=== PATIENT | female | born 1955 | race Caucasian/White ===

== ENCOUNTER 2020-01-01 07:12 | Outpatient (CLI) | payer MEDICARE, OTHER, SELFPAY ==
[2020-01-01 07:33] LABS: Hematocrit 41.7 % (37.0-47.0); Hemoglobin 14.6 g/dL (12.0-15.0); Mean Corpuscular Hemoglobin 35.1 pg (26-34); Mean Corpuscular Volume 100.2 fl (80-100); Mean Platelet Volume 10.5 fl (7.4-10.4); Platelet Count Result 179 k/mm3 (150-375); Red Blood Count 4.16 M/mm3 (4.2-5.4); Red Cell Distribution Width 11.9 % (11.5-14.5); White Blood Count 5.3 K/mm3 (4.5-10.0)
[2020-01-01 07:45] LABS: Alanine Aminotransferase 24 U/L (4-35); Albumin Level 4.3 g/dL (3.5-5.1); Alkaline Phosphatase 83 U/L (38-126); Aspartate Amino Transferase 30 U/L (14-36); Bilirubin,Total 1.1 mg/dL (0.2-1.3); Blood Urea Nitrogen 7 mg/dL (7-17); Carbon Dioxide 26 mmol/L (22-30); Chloride 102 mmol/L (98-107); Cholesterol 144 mg/dL (0-200); Estimated Glomerular Filt Rate > 60; Glucose 181 mg/dL (65-105); HDL Direct 50 mg/dL; Potassium 4.1 mmol/L (3.4-5.0); Sodium 137 mmol/L (137-145); Triglycerides 236 mg/dL (<150)
[2020-01-01 07:56] LABS: LDL Cholesterol Direct 66 mg/dL
== END 2020-01-01 07:13 | disposition home or self-care (01) ==
PROVIDERS: PCP Family Medicine; Visit Provider Nurse Practitioner Family
DX: E78.5 Hyperlipidemia, unspecified (principal); I10 Essential (primary) hypertension; R53.83 Other fatigue; Z13.29 Encounter for screening for other suspected endocrine disorder; Z79.899 Other long term (current) drug therapy
CPT/HCPCS: 36415; 80053; 80061; 84443; 85027

== ENCOUNTER 2020-01-22 07:18 | Outpatient (CLI) | payer MEDICARE, OTHER, SELFPAY ==
[2020-01-22 07:59] LABS: Hemoglobin A1C 6.6 % (<5.7)
== END 2020-01-22 07:19 | disposition home or self-care (01) ==
PROVIDERS: PCP Family Medicine; Visit Provider Nurse Practitioner Family
DX: R73.01 Impaired fasting glucose (principal)
CPT/HCPCS: 36415; 83036

== ENCOUNTER → 2020-03-31 11:17 | Outpatient (CLI) | payer MEDICARE, OTHER, SELFPAY ==
--- NOTE | ~2020-03-31 | MM_ITS ---
EXAMINATION: MM screening [facility] BI w tomás HISTORY: Screening mammogram TECHNIQUE: Craniocaudal and mediolateral oblique 3-D tomosynthesis images were obtained and synthetic 2-D images were generated. CAD analysis was submitted and interpreted. COMPARISON: 12/19/2018, 11/10/2017, 11/06/2016 bilateral digital screening mammogram examinations BREAST PARENCHYMAL COMPOSITION: There are scattered areas of fibroglandular density. FINDINGS: Occasional bilateral benign calcifications. Benign intramammary lymph node is noted in the upper outer quadrant of the right breast. There is no evidence of suspicious mass, calcification, or architectural distortion to suggest malignancy in either breast. There has been no suspicious interva l change. IMPRESSION: 1. No mammographic evidence of malignancy. 2. Recommend routine screening mammography in one year. BI-RADS Category 2: Benign finding(s). Reviewed, dictated and finalized at location A.
--- NOTE | ~2020-03-31 | DEXA_ITS ---
Bone Density Report Name: Meagan Soria Age: 64 Sex: Female Ethnicity: White Date of : 1955 Indication: postmenopausal; screening for osteoporosis; height loss; hysterectomy; Referring Provider: Letitia Burnett Study: Bone densitometry was performed. Exam Date: March 31, 2020 Accession number: [id number] Bone Density: Region BMD T-score Z-score Classification AP Spine (L1, L3, L4) 1.309 2.3 4.2 Normal Femoral Neck (Left) 0.857 0.1 1.7 Normal Total Hip (Left) 1.201 2.1 3.4 Normal Femoral Neck (Right) 0.876 0.2 1.8 Normal Total Hip (Right) 1.198 2.1 3.4 Normal Total Hip Mean 1.200 2.1 3.4 Normal World Health Organization criteria for BMD impression classify patients as: Normal (T-score at or above -1.0), Osteopenia (T-score between -1.0 and -2.5), or Osteoporosis (T-score at or below -2.5). 10-year Fracture Risk: FRAX not reported because: All T-scores for Spine Total, Hip Total, Femoral Neck at or above -1.0 Previous Exams: Region Exam Age BMD T-score BMD Change BMD Change Date g/cm2 vs Baseline vs Previous AP Spine(L1, L3, L4) 03/31/2020 64 1.309 2.3 0.056 0.056 06/04/2008 52 1.253 1.8 Total Hip(Left) 03/31/2020 64 1.201 2.1 -0.029 -0.029 06/04/2008 52 1.230 2.4 Total Hip(Right) 03/31/2020 64 1.198 2.1 -0.033 -0.033 06/04/2008 52 1.231 2.4 *Denotes significance at 95% confidence level, LSC for AP Spine = 0.022 g/cm2, LSC for Total Hip = 0.027 g/cm2 Clinical Information Provided by Patient: Has the following medical conditions: Hysterectomy Patient maximum height was 70 Menopause Age: 48 No regular weight bearing exercise Drinks caffeinated beverages Onset of menses at age 10 Number of children 4 Impression: The patient has normal bone mass. No significant bone loss was observed. Discussion: BONE DENSITY IS ABOVE THE MINIMUM DESIRABLE LEVEL AT ALL SKELETAL SITES TESTED. This patient?s bone mineral density is above the minimum desirable level (T-score -1.0 or better) at all sites measured. The patient should follow a healthful lifestyle (good nutrition with adequate calcium and vitamin D, and appropriate weight-bearing exercise). Follow-Up: Consider repeating this study in 5 years or sooner if there is some new clinical indication. Reported by: FRIEDA on 03/31/2020 3:22:00 PM. Alfreda
== END ==
PROVIDERS: Visit Provider Obstetrics & Gynecology
DX: Z12.31 Encounter for screening mammogram for malignant neoplasm of breast (principal); Z78.0 Asymptomatic menopausal state
CPT/HCPCS: 77063; 77067; 77080

== ENCOUNTER 2021-02-26 07:07 | Outpatient (CLI) | payer MEDICARE, OTHER, SELFPAY ==
[2021-02-26 08:39] LABS: Hemoglobin 15.4 g/dL (12.0-15.0); Mean Corpuscular Hemoglobin 35.2 pg (26-34); Mean Corpuscular Volume 100.5 fl (80-100); Mean Platelet Volume 10.5 fl (7.4-10.4); Platelet Count Result 211 k/mm3 (150-375); Red Blood Count 4.38 M/mm3 (4.2-5.4); Red Cell Distribution Width 11.9 % (11.5-14.5)
[2021-02-26 08:42] LABS: Alanine Aminotransferase 39 U/L (4-35); Albumin Level 4.5 g/dL (3.5-5.1); Alkaline Phosphatase 91 U/L (38-126); Anion Gap 11 mmol/L (8-16); Aspartate Amino Transferase 38 U/L (14-36); Bilirubin,Total 0.8 mg/dL (0.2-1.3); Blood Urea Nitrogen 10 mg/dL (7-17); Calcium 9.6 mg/dL (8.4-10.2); Carbon Dioxide 26 mmol/L (22-30); Chloride 101 mmol/L (98-107); Cholesterol 165 mg/dL (0-200); Estimated Glomerular Filt Rate > 60; Glucose 134 mg/dL (65-110); HDL Direct 73 mg/dL; Potassium 4.2 mmol/L (3.4-5.0); Sodium 138 mmol/L (137-145); Triglycerides 228 mg/dL (<150)
[2021-02-26 08:54] LABS: LDL Cholesterol Direct 63 mg/dL
== END 2021-02-26 07:08 | disposition home or self-care (01) ==
PROVIDERS: PCP Family Medicine; Visit Provider Nurse Practitioner Family
DX: E78.5 Hyperlipidemia, unspecified (principal); I10 Essential (primary) hypertension; Z00.00 Encounter for general adult medical examination without abnormal findings
CPT/HCPCS: 36415; 80053; 80061; 84443; 85027

== ENCOUNTER 2021-04-03 08:29 | Outpatient (CLI) | payer MEDICARE, OTHER, SELFPAY ==
[2021-04-03 09:32] LABS: Alanine Aminotransferase 60 U/L (4-35); Albumin Level 4.6 g/dL (3.5-5.1); Alkaline Phosphatase 77 U/L (38-126); Aspartate Amino Transferase 68 U/L (14-36)
== END 2021-04-03 08:30 | disposition home or self-care (01) ==
PROVIDERS: PCP Family Medicine; Visit Provider Nurse Practitioner Family
DX: R74.8 Abnormal levels of other serum enzymes (principal)
CPT/HCPCS: 36415; 80076

== ENCOUNTER → 2021-04-22 08:07 | Outpatient (CLI) | payer MEDICARE, OTHER, SELFPAY ==
--- NOTE | ~2021-04-22 | US_ITS ---
EXAMINATION: US abdomen complete DATE: 04/22/2021 08:44 INDICATION: Abnormal levels of other serum enzymes TECHNIQUE: Multiple grayscale and Doppler ultrasound images of the abdomen were obtained. COMPARISON: None FINDINGS: Normal abdominal aorta measuring 2.2 cm diameter proximally tapering to 2.0 cm in the mid aorta and 2 .0 cm at the distal aorta. Visualized proximal to mid inferior vena cava is normal. The pancreatic he ad and body are normal in appearance. The pancreatic tail is not visualized. Liver has normal contou r, with a smooth surface. There is increased parenchymal echogenicity and coarsened echotexture consi stent with diffuse hepatic steatosis. No liver lesion identified. No intrahepatic biliary duct dilat ion suspected. Portal venous flow was seen in the hepatopetal, normal direction and has normal Dopple r waveform. The gallbladder is normal in appearance. There is no cholelithiasis. The common bile monty t measures 4 mm, which is normal. Sonographic Clarke sign was reported as negative by the lathe machinist . There is normal renal contour and echogenicity bilaterally. The right kidney measures 11.3 x 5.2 x 5.8 cm and the left 13.7 x 5.7 x 5.4 cm. There are no focal renal lesions identified. There is no h ydronephrosis. Spleen is normal measuring 11.6 cm in maximal length. IMPRESSION: 1. Diffuse hepatic steatosis. Otherwise normal abdominal ultrasound. Reviewed, dictated and finalized at location B.
== END ==
PROVIDERS: PCP Family Medicine; Visit Provider Family Medicine
DX: R74.8 Abnormal levels of other serum enzymes (principal); K76.0 Fatty (change of) liver, not elsewhere classified
CPT/HCPCS: 76700

== ENCOUNTER 2021-04-22 10:49 | Outpatient (CLI) | payer MEDICARE, OTHER, SELFPAY ==
[2021-04-22 10:48] LABS: Hemoglobin A1C 6.3 % (<5.7)
== END 2021-04-22 10:50 | disposition home or self-care (01) ==
LOC: ANHLAB 10:49
PROVIDERS: PCP Family Medicine; Visit Provider Family Medicine
DX: E11.9 Type 2 diabetes mellitus without complications (principal); R74.8 Abnormal levels of other serum enzymes
CPT/HCPCS: 36415; 83036

== ENCOUNTER 2021-04-23 08:38 | Outpatient (CLI) | payer MEDICARE, OTHER, SELFPAY ==
[2021-04-23 09:25] LABS: Alanine Aminotransferase 35 U/L (4-35); Albumin Level 4.7 g/dL (3.5-5.1); Alkaline Phosphatase 79 U/L (38-126); Aspartate Amino Transferase 28 U/L (14-36); Bilirubin,Total 0.8 mg/dL (0.2-1.3)
[2021-04-23 10:08] LABS: Hepatitis B Surface Antigen Negative (Negative)
[2021-04-23 10:14] LABS: HAV RESULT Negative (Negative); Hepatitis B Core IgM Result Negative (Negative)
[2021-04-23 10:25] LABS: Hepatitis C Virus Antibody Negative (Negative)
[2021-04-26 14:45] LABS: GGT 25 U/L (3-65)
== END 2021-04-23 08:39 | disposition home or self-care (01) ==
PROVIDERS: PCP Family Medicine; Visit Provider Nurse Practitioner Family
DX: R74.8 Abnormal levels of other serum enzymes (principal); R74.01 Elevation of levels of liver transaminase levels; E11.9 Type 2 diabetes mellitus without complications
CPT/HCPCS: 36415; 80074; 80076; 82977

== ENCOUNTER → 2021-05-07 10:38 | Outpatient (CLI) | payer MEDICARE, OTHER, SELFPAY ==
--- NOTE | ~2021-05-07 | MM_ITS ---
EXAMINATION: MM screening [facility] BI w tomás HISTORY: Screening mammogram TECHNIQUE: Craniocaudal and mediolateral oblique 3-D tomosynthesis images were obtained and synthetic 2-D images were generated. CAD analysis was submitted and interpreted. COMPARISON: 03/31/2020, 12/2018, 11/10/2017 bilateral digital screening mammogram examinations BREAST PARENCHYMAL COMPOSITION: There are scattered areas of fibroglandular density. FINDINGS: Stable bilateral circumscribed axillary tail lymph nodes. There is no evidence of suspiciou s mass, calcification, or architectural distortion to suggest malignancy in either breast. There has been no suspicious interval change. IMPRESSION: 1. No mammographic evidence of malignancy. 2. Recommend routine screening mammography in one year. BI-RADS Category 2: Benign finding(s). Reviewed, dictated and finalized at location A.
== END ==
PROVIDERS: PCP Family Medicine; Visit Provider Obstetrics & Gynecology
DX: Z12.31 Encounter for screening mammogram for malignant neoplasm of breast (principal)
CPT/HCPCS: 77063; 77067

== ENCOUNTER 2021-07-06 12:24 | Outpatient (CLI) | payer MEDICARE, OTHER, SELFPAY ==
[2021-07-06 13:12] LABS: Alanine Aminotransferase 21 U/L (4-35); Albumin Level 4.5 g/dL (3.5-5.1); Alkaline Phosphatase 85 U/L (38-126); Aspartate Amino Transferase 25 U/L (14-36); Bilirubin,Total 0.7 mg/dL (0.2-1.3)
== END 2021-07-06 12:25 | disposition home or self-care (01) ==
LOC: ANHLAB 12:26
PROVIDERS: PCP Family Medicine; Visit Provider Family Medicine
DX: R74.8 Abnormal levels of other serum enzymes (principal)
CPT/HCPCS: 36415; 80076

== ENCOUNTER 2022-05-27 07:21 | Outpatient (CLI) | payer MEDICARE, OTHER, SELFPAY ==
[2022-05-27 08:05] LABS: Hematocrit 42.6 % (37.0-47.0); Hemoglobin 15.2 g/dL (12.0-15.0); Mean Corpuscular HGB Conc 35.7 g/dl (32-36); Mean Corpuscular Hemoglobin 36.2 pg (26-34); Mean Corpuscular Volume 101.4 fl (80-100); Mean Platelet Volume 10.6 fl (7.4-10.4); Platelet Count Result 211 k/mm3 (150-375); Red Cell Distribution Width 11.6 % (11.5-14.5); White Blood Count 4.7 K/mm3 (4.5-10.0)
[2022-05-27 08:19] LABS: Alanine Aminotransferase 23 U/L (6-35); Albumin Level 4.4 g/dL (3.5-5.1); Alkaline Phosphatase 78 U/L (38-126); Anion Gap 15 mmol/L (8-16); Aspartate Amino Transferase 23 U/L (14-36); Bilirubin,Total 0.9 mg/dL (0.2-1.3); Blood Urea Nitrogen 13 mg/dL (7-17); Carbon Dioxide 27 mmol/L (22-30); Chloride 97 mmol/L (98-107); Cholesterol 248 mg/dL (0-200); Estimated Glomerular Filt Rate > 60; Glucose 173 mg/dL (65-110); HDL Direct 46 mg/dL; Potassium 3.8 mmol/L (3.4-5.0); Sodium 139 mmol/L (137-145); Triglycerides 297 mg/dL (<150)
[2022-05-27 08:30] LABS: LDL Cholesterol Direct 135 mg/dL
== END 2022-05-27 07:22 | disposition home or self-care (01) ==
LOC: ANHLAB 07:23
PROVIDERS: PCP Family Medicine; Visit Provider Nurse Practitioner Family
DX: E78.5 Hyperlipidemia, unspecified (principal); I10 Essential (primary) hypertension; Z68.33 Body mass index [BMI] 33.0-33.9, adult
CPT/HCPCS: 36415; 80053; 80061; 84443; 85027

== ENCOUNTER → 2022-06-17 09:58 | Outpatient (CLI) | payer MEDICARE, OTHER, SELFPAY ==
--- NOTE | ~2022-06-17 | MM_ITS ---
EXAMINATION: MM screening [facility] BI w tomás HISTORY: Screening mammogram TECHNIQUE: Craniocaudal and mediolateral oblique 3-D tomosynthesis images were obtained and synthetic 2-D images were generated. CAD analysis was submitted and interpreted. COMPARISON: 05/07/2021, 03/31/2020, 12/19/2018 BREAST PARENCHYMAL COMPOSITION: There are scattered areas of fibroglandular density. FINDINGS: No suspicious mass, calcification, or architectural distortion are identified in either selene ast to suggest malignancy. There has been no suspicious interval change. IMPRESSION: 1. No mammographic evidence of malignancy. 2. Recommend routine screening mammography in one year. BI-RADS Category 1: Negative Reviewed, dictated and finalized at location A. NG SERVICES DIRECTOR
== END ==
PROVIDERS: PCP Family Medicine; Visit Provider Obstetrics & Gynecology
DX: Z12.31 Encounter for screening mammogram for malignant neoplasm of breast (principal)
CPT/HCPCS: 77063; 77067

== ENCOUNTER 2023-07-15 07:07 | Outpatient (CLI) | payer MEDICARE, OTHER, SELFPAY ==
[2023-07-15 07:37] LABS: Hematocrit 44.2 % (37.0-47.0); Hemoglobin 15.2 g/dL (12.0-15.0); Mean Corpuscular HGB Conc 34.4 g/dl (32-36); Mean Corpuscular Hemoglobin 35.3 pg (26-34); Mean Corpuscular Volume 102.8 fl (80-100); Mean Platelet Volume 10.1 fl (7.4-10.4); Platelet Count Result 218 k/mm3 (150-375); Red Cell Distribution Width 11.9 % (11.5-14.5)
[2023-07-15 07:52] LABS: Alanine Aminotransferase 21 U/L (6-35); Alkaline Phosphatase 83 U/L (38-126); Anion Gap 9 mmol/L (8-16); Aspartate Amino Transferase 27 U/L (14-36); Bilirubin,Total 0.8 mg/dL (0.2-1.3); Blood Urea Nitrogen 12 mg/dL (7-17); Calcium 9.3 mg/dL (8.4-10.2); Carbon Dioxide 28 mmol/L (22-30); Chloride 103 mmol/L (98-107); Cholesterol 224 mg/dL (0-200); Estimated Glomerular Filt Rate > 60; Glucose 176 mg/dL (65-110); HDL Direct 49 mg/dL; Potassium 4.1 mmol/L (3.4-5.0); Sodium 140 mmol/L (137-145); Triglycerides 281 mg/dL (<150)
[2023-07-15 08:03] LABS: LDL Cholesterol Direct 123 mg/dL
[2023-07-15 08:04] LABS: Hemoglobin A1C 7.5 % (<5.7)
[2023-07-15 11:06] LABS: Creatinine Urine 286.1 mg/dL
[2023-07-15 11:12] LABS: MALB Creatinine Ratio 9.4 mg/g (0-30)
== END 2023-07-15 07:08 | disposition home or self-care (01) ==
LOC: ANHLAB 07:09
PROVIDERS: PCP Family Medicine; Visit Provider Nurse Practitioner Family
DX: E11.9 Type 2 diabetes mellitus without complications (principal); I10 Essential (primary) hypertension; Z68.33 Body mass index [BMI] 33.0-33.9, adult
CPT/HCPCS: 36415; 80053; 80061; 82043; 83036; 84443; 85027

== ENCOUNTER → 2023-08-01 10:27 | Outpatient (CLI) | payer MEDICARE, OTHER, SELFPAY ==
--- NOTE | ~2023-08-01 | MM_ITS ---
EXAMINATION: MM screening [facility] BI w tomás HISTORY: Screening TECHNIQUE: Craniocaudal and mediolateral oblique 3-D tomosynthesis images were obtained and synthetic 2-D images were generated. CAD analysis was submitted and interpreted. COMPARISON: Comparison to multiple prior studies sequentially, with oldest reviewed study dated 11/06. BREAST PARENCHYMAL COMPOSITION: Breast composed of scattered areas of fibroglandular density FINDINGS: There is no evidence of suspicious mass, calcification, or architectural distortion to sugg est malignancy in either breast. There has been no suspicious interval change. IMPRESSION: 1. No mammographic evidence of malignancy. 2. Recommend routine screening mammography in one year. BI-RADS Category 1: Negative Reviewed, dictated and finalized at location A. IN HOUSEKEEPER
== END ==
PROVIDERS: PCP Family Medicine; Visit Provider Obstetrics & Gynecology
DX: Z12.31 Encounter for screening mammogram for malignant neoplasm of breast (principal)
CPT/HCPCS: 77063; 77067

== ENCOUNTER 2023-08-18 10:42 | Outpatient (CLI) | payer MEDICARE, OTHER, SELFPAY ==
--- NOTE | ~2023-08-18 | MR_ITS ---
MRI of the right shoulder Technique: Axial proton-density fat-sat images, coronal proton density fat-sat and T2 fat-sat images, and sagittal T1-weighted and T2 fat-sat images were acquired. Clinical History: Pain Findings: There is severe AC joint degenerative change. There is bony productive change at the distal clavicle, as well as small subacromial spur. Coracoclavicular, coracoacromial, and coracohumeral lig aments are intact. There is full-thickness tear involving the entire infraspinatus tendon, as well as the posterior and probable central portions of the supraspinatus tendon. Anterior fibers of the supraspinatus tendon ap pear to remain intact, with moderate tendinosis. Fluid-filled gap measures approximately 4.0 x 3.2 cm in extent. Subscapularis tendon is intact, with mild tendinosis. Tendon of the long head of the mary ps is intact. No definite labral tear identified. Inferior glenohumeral ligament is intact. There is small glenohumeral joint effusion with fluid passi ng through the rotator cuff defect into the subacromial/subdeltoid bursa. There is focal chondromalac ia at the inferomedial humeral head. No definite muscle atrophy or edema. Impression: Full-thickness tear involving the entire infraspinatus tendon as well as the posterior and possibly c entral portions of the supraspinatus tendon. Severe AC joint degenerative change. Reviewed, dictated and finalized at [facility]. REDUCTION ROLLER Impression: Full-thickness tear involving the entire infraspinatus tendon as well as the po sterior and possibly central portions of the supraspinatus tendon. Severe AC joint degenerative change.
== END 2023-08-18 10:43 ==
LOC: MICIMG 10:43
DX: S46.011A Strain of muscle(s) and tendon(s) of the rotator cuff of right shoulder, initial encounter (principal); M19.011 Primary osteoarthritis, right shoulder; X58.XXXA Exposure to other specified factors, initial encounter
CPT/HCPCS: 73221

== ENCOUNTER 2023-12-08 07:33 | Outpatient (CLI) | payer MEDICARE, OTHER, SELFPAY ==
[2023-12-08 08:23] LABS: Alanine Aminotransferase 23 U/L (6-35); Aspartate Amino Transferase 31 U/L (14-36); Cholesterol 209 mg/dL (0-200); HDL Direct 49 mg/dL; Triglycerides 281 mg/dL (<150)
[2023-12-08 08:34] LABS: LDL Cholesterol Direct 131 mg/dL
== END 2023-12-08 07:34 | disposition home or self-care (01) ==
PROVIDERS: PCP Family Medicine; Visit Provider Nurse Practitioner Family
DX: E78.5 Hyperlipidemia, unspecified (principal); R74.8 Abnormal levels of other serum enzymes; E11.9 Type 2 diabetes mellitus without complications; R74.01 Elevation of levels of liver transaminase levels
CPT/HCPCS: 36415; 80061; 84450; 84460

== ENCOUNTER 2024-07-25 07:46 | Outpatient (CLI) | payer MEDICARE, OTHER, SELFPAY ==
[2024-07-25 10:35] LABS: Cholesterol 245 mg/dL (0-200); HDL Direct 34 mg/dL; Triglycerides 220 mg/dL (<150)
[2024-07-25 10:46] LABS: LDL Cholesterol Direct 155 mg/dL
== END 2024-07-25 07:47 | disposition home or self-care (01) ==
LOC: ANHLAB 07:48
PROVIDERS: PCP Family Medicine; Visit Provider Physician Assistant Medical
DX: E78.5 Hyperlipidemia, unspecified (principal); I10 Essential (primary) hypertension; E11.9 Type 2 diabetes mellitus without complications
CPT/HCPCS: 36415; 80061; 84443

== ENCOUNTER 2024-08-29 11:15 | Outpatient (CLI) | payer MEDICARE, OTHER, SELFPAY ==
--- NOTE | ~2024-08-29 | MM_ITS ---
EXAMINATION: MM screening [facility] BI w tomás HISTORY: Screening TECHNIQUE: Craniocaudal and mediolateral oblique 3-D tomosynthesis images were obtained and synthetic 2-D images were generated. CAD analysis was submitted and interpreted. COMPARISON: Comparison to multiple prior studies sequentially, with oldest reviewed study dated 11/10. BREAST PARENCHYMAL COMPOSITION: . Not dense: There are scattered areas of fibroglandular density. FINDINGS: There is no evidence of suspicious mass, calcification, or architectural distortion to sugg est malignancy in either breast. There has been no suspicious interval change. IMPRESSION: 1. No mammographic evidence of malignancy. 2. Recommend routine screening mammography in one year. BI-RADS Category 1: Negative Reviewed, dictated and finalized at location B. ARTIST
== END 2024-08-29 11:16 | disposition home or self-care (01) ==
LOC: MICIMG 11:16
PROVIDERS: PCP Family Medicine; Visit Provider Obstetrics & Gynecology
DX: Z12.31 Encounter for screening mammogram for malignant neoplasm of breast (principal)
CPT/HCPCS: 77063; 77067

== ENCOUNTER 2025-01-03 07:01 | Outpatient (CLI) | payer MEDICARE, OTHER, SELFPAY ==
--- OUTSIDE RECORDS SUMMARY | 2025-01-03 07:04 | XMS_ITS ---
Author Name Auto Generated, Auto Generated Organization [employer] [facility] Address [address] [place] [address] Phone [phone] Care Team Providers Care Missile Mechanic Name Role Phone Melchor Tejada Unavailable Functional Status No Results Mental Status No Results Allergies and Intolerances Name Onset Date Reaction Severity No Known Allergies (Allergy) TueSep 02 21:28:00 EST 2024 Encounters Program Name Primary Diagnosis Admission Date/Time Dis charge Date/Time Home Care TueSep 04 19:00 :00 EST 2024Sep 21 18:59:59 EST 2024 Medications Medication Directions Start Date End Date acetaminophen 500 mg capsule 2 caps CAPSULE Oral 3 Times Daily for 10 Days after 10 days, take as needed TueSep 05 01:00:00 EST 2024Sep 15 00:59:00 EST 2024 aspirin 81 mg chewable tablet 1 tab TABLET,CHEWABLE Oral 2 Times Daily for 42 Days TueSep 05 01:00:00 EST 2024Sep 21 01:00:00 EST 2024 oxyCODONE 10 mg tablet 0.5-1 tablet TABL ET Oral PRN Every 4 Hours as needed for pain TueSep 05 01:00:00 EST 2024Sep 21 01:00:00 EST 2024 ezetimibe 10 mg tablet 1 tab TABLET Oral Every 1 Day TueSep 05 01:00:00 EST 2024Sep 21 01:00:00 EST 2024 Farxiga 10 mg tablet 1 tab TABLET Oral E very 1 Day TueSep 05 01:00:00 EST 2024Sep 21 01:00:00 EST 2024 lisinopriL 20 mg-hydrochlorothiazide 12.5 mg tablet 1 tab TABLET Oral Every 1 Day TueSep 05 01:00:00 EST 2024Sep 21 01:00:00 EST 2024 Miralax 17 gram/dose oral powder 17gram dose POWDER (GRAM) Oral 2 Times Daily TueSep 05 01:00:00 EST 2024Sep 21 01:00:00 EST 2024 Problems Active Concerns * Aftercare following joint replacement surgery* Code: * Start Date: TueSep 04 00:00:00 EST 2024 * End Date: * Text: * dedicated intermodal truck driver (current) use of aspirin* Code: * Start Date: TueSep 05 00:00:00 EST 2024 * End Date: * Text: * Other termite inspector (current) drug therapy* Code: * Start Date: TueSep 05 00:00:00 EST 2024 * End Date: * Text: * Dependence on other enabling machines and devices* Code: * Start Date: TueSep 05 00:00:00 EST 2024 * End Date: * Text: * Pure hypercholesterolemia, unspecified* Code: * Start Date: TueSep 05 00:00:00 EST 2024 * End Date: * Text: * Essential (primary) hypertension* Code: * Start Date: TueSep 05 00:00:00 EST 2024 * End Date: * Text: * Presence of left artificial knee joint* Code: * Start Date: TueSep 05 00:00:00 EST 2024 * End Date: * Text: Reason for Referral
--- OUTSIDE RECORDS SUMMARY | 2025-01-03 07:04 | XMS_ITS ---
Author Name Auto Generated, Auto Generated Organization [employer] [facility] Address [address] [place] [address] Phone [phone] Care Team Providers Care Clerk Operator Name Role Phone Melchor Tejada Unavailable Functional [...] 2024 * End Date: * Text: * exterminator (current) use of aspirin* Code: * Start Date: TueSep 05 00:00:00 EST 2024 * End Date: * Text: * Other local intermodal truck driver (current) drug therapy* Code: * Start Date: [...]
[2025-01-03 07:56] LABS: Alanine Aminotransferase 22 U/L (6-35); Albumin Level 4.4 g/dL (3.5-5.1); Alkaline Phosphatase 83 U/L (38-126); Anion Gap 10 mmol/L (4-12); Aspartate Amino Transferase 33 U/L (14-36); Bilirubin,Total 0.9 mg/dL (0.2-1.3); Blood Urea Nitrogen 13 mg/dL (7-17); Calcium 9.6 mg/dL (8.4-10.2); Carbon Dioxide 26 mmol/L (22-30); Chloride 102 mmol/L (98-107); Estimated Glomerular Filt Rate > 60; Glucose 147 mg/dL (65-110); Potassium 3.8 mmol/L (3.4-5.0); Sodium 138 mmol/L (137-145); Total Protein 7.6 g/dL (6.3-8.2)
[2025-01-03 08:52] LABS: MALB Creatinine Ratio 5.7 mg/g (0-30); Microalbumin Urine Random 7.6 mg/L (0-16.7)
== END 2025-01-03 07:02 | disposition home or self-care (01) ==
PROVIDERS: PCP Family Medicine; Visit Provider Physician Assistant Medical
DX: I10 Essential (primary) hypertension (principal); E11.9 Type 2 diabetes mellitus without complications
CPT/HCPCS: 36415; 80053; 82043